=== PATIENT | male | born 1955 | race Hispanic/Latino ===

== ENCOUNTER 2024-10-03 07:54 | Outpatient (RCR) | payer MEDICARE | END 2024-10-09 | LOC: PT 07:54 | PROVIDERS: ATTEND Internal Medicine | DX: M47.816 Spondylosis without myelopathy or radiculopathy, lumbar region (principal); R22.43 Localized swelling, mass and lump, lower limb, bilateral ==

== ENCOUNTER 2024-11-02 09:00 | Outpatient (RCR) | payer MEDICARE | END 2024-11-08 | LOC: PT 09:00 | PROVIDERS: ATTEND Internal Medicine | DX: M47.816 Spondylosis without myelopathy or radiculopathy, lumbar region (principal); R22.43 Localized swelling, mass and lump, lower limb, bilateral ==